=== PATIENT | female | born 1980 | race Caucasian/White ===

== ENCOUNTER → 2017-06-18 09:18 | Outpatient (CLI) | payer OTHER, SELFPAY ==
--- NOTE | 2017-06-18 | CYST_PTH ---
PATIENT: LESA ANGEL LOC: [facility] U#:[id number] AGE/SX: 44/F ROOM: RE06/18/[address]: Dr. Vitaly Maravilla MD : 1980 BED: DIS: SPEC #: [id number] RECD: 06/19/17 13:12 STATUS: MAURI DEMETRA #: [id number] GREGORY: 06/18/17 00:[address]: Vitaly Maravilla DEPT: SURGICAL PATHOLOGY RECD BY: Trent Saravia ENTERED: 06/19/17 13:12 SP TYPE: Cyst OTHR DR: Dr. Jewels Grady MD Tissues: CYST Procedures: Surgery Specimen Level III HEADER OPERATION: Ultrasound-guided left breast cyst removal PRE-OP DIAGNOSIS: Abnormal mammogram, palpable cyst TISSUE SUBMITTED: Left breast cyst MICROSCOPIC DIAGNOSIS Left breast cyst, excision: Epidermal inclusion cyst. AM:mihai 06/22/17 MICROSCOPIC DESCRIPTION Slides are reviewed. GROSS DESCRIPTION Received in fixative is one container labeled with the patient's name and designated left breast cyst. The specimen consists of a piece of fibroadipose tissue measuring 3.5 x 2 x 1 cm. A focal area shows a suture. This area is inked black and the rest of the specimen is inked blue. Sections reveal a cyst filled with vazquez-white cheesy material. The cyst measures 0.5 cm in greatest dimension. The entire specimen is submitted in three cassettes. / SJ:mihai 06/19/17 TC:5 CPT: 76969
== END ==
PROVIDERS: Family Provider Internal Medicine; PCP Internal Medicine; Visit Provider Surgery
DX: N60.02 Solitary cyst of left breast (principal)
CPT/HCPCS: 88304

== ENCOUNTER 2017-10-06 21:52 | Emergency (ER) | payer OTHER, SELFPAY ==
[2017-10-06 21:52] VITALS: BP 197/114; PULSE 100; RESP 16; TEMP 36.6; O2SAT 97; BMI 48.0
--- NOTE | 2017-10-06 22:48 | CT_ITS ---
STUDY: CT ABDOMEN AND PELVIS WITHOUT CONTRAST REASON FOR EXAM: Female, 36 years old. Left-sided flank pain for couple days with elevated white count. RADIATION DOSAGE (If Supplied By Facility): CTDIvol = ( 23.99 ) mGy, DLP = ( 1216.60 ) mGycm TECHNIQUE: Transaxial images were obtained from the dome of the diaphragm to the symphysis pubis without oral contrast, and without intravenous contrast. Sagittal and coronal images were reconstructed. Individualized dose optimization techniques were used for this CT. COMPARISON: None. FINDINGS: The visualized lung bases are unremarkable. The visualized portions of the heart are within normal limits. Normal liver. There are multiple gallstones. There is mild splenomegaly. Normal pancreas. Normal bilateral adrenal glands. The right kidney has a nonobstructing calculus measuring approximately 2.2 mm in size. There is mild prominence of the renal collecting systems without evidence for hydronephrosis, hydroureter or radiopaque ureteral calculus. There is a small hiatal hernia. There is no evidence for dilated bowel, ascites or pneumoperitoneum. The small bowel has a grossly normal appearance. The colon is nondistended for most of its length with apparent mild thickening of the monsalve. There are scattered colonic diverticula. Most of the stool is visible in the right colon. There are surgical clips in the region of the appendix consistent with a prior appendectomy. Normal abdominal aorta. Normal inferior vena cava. Normal retroperitoneum. Normal urinary bladder. There is absence of the uterus consistent with a prior hysterectomy. There is a small umbilical hernia containing fat. Normal osseous structures. CT/Abdomen/Pelvis without Cont IMPRESSION: 1. Cholelithiasis. 2. Nonobstructing right-sided renal calculus. Electronically Signed: Kamila Bobby MD at 0:19 EDT , Service support ,
[2017-10-06] MEDS: 0.9% Normal Saline 1,000 ML 1000 ML IV (22:58)
[2017-10-06] MEDS: Ketorolac 30 MG/ML Syringe IV (22:58)
[2017-10-06] MEDS: Ondansetron 4 MG/2 ML Vial IV (22:58)
[2017-10-06 22:59] LABS: Absolute Lymphocyte Count 2.38 X10^3/ul (0.83-4.51); Absolute Neutrophil Count 8.3 X10^3/uL (2.0-7.7); Basophil# 0.02 X10^3/uL; Basophil% 0.2 % (0-1); Eosinophil# 0.09 X10^3/uL; Eosinophils% 0.8 % (0-5); Hematocrit 41.6 % (37-47); Hemoglobin 13.5 g/dl (12.0-15.0); Lymphocyte # 2.38 X10^3/ul (4.0); Lymphocyte % 21.2 % (19-41); Mean Corp Hgb Conc 32.5 g/gl (32-36); Mean Corpuscular Hgb 26.5 pg (27.0-32.0); Mean Corpuscular Volume 81.7 fL (81-99); Mean Platelet Vol. 9.6 fl (6.2-12.0); Monocyte# 0.45 X10^3/uL; Neutrophil # 8.28 X10^3/uL (2.7-7.7); Neutrophil % 73.7 % (47-70); POSITIVE COUNT NO; POSITIVE DIFFERENTIAL NO; POSITIVE MORPHOLOGY NO; Platelet Count 234 K/mm3 (150-450); RBC Distribution Width SD 41.7 fl (35.1-43.9); Red Blood Count 5.09 M/mm3 (4.2-5.4); White Blood Count 11.2 K/mm3 (4.4-11.0)
[2017-10-06 23:00] LABS: Mucous, Urine 0 SEEN /hpf (<or=2+)
[2017-10-06 23:03] LABS: Color, Urine Yellow (Yellow); Glucose, Dipstick Normal (Normal); Ketone-Dipstick Negative (Negative); Leukocyte Esterase-Dipstick 500 /ul (Negative); Nitrite-Dipstick Positive (Negative); Occult Blood-Urine 250 /ul (Negative); Protein-Dipstick 100 mg/dl (Negative); Specific Gravity, Urine 1.025 (1.002-1.030); Urine Bilirubin Dipstick Negative (Negative); Urine Clarity Cloudy (Clear); Urine Urobilinogen Normal (Normal)
[2017-10-06 23:08] LABS: ALB/GLOB Ratio 1.1 RATIO (0.9-2.4); AST(SGOT) 16 U/L (15-37); Alanine Aminotransfer ALT/SGPT 29 U/L (13-56); Albumin, Serum 4.4 g/dL (3.2-5.0); Alkaline Phosphatase 95 U/L (45-117); Anion Gap 7 (5-15); BUN 15 mg/dL (7-18); BUN/Creat Ratio 16.5 RATIO (10-20); Calcium,Total 10.2 mg/dL (8.5-10.1); Chloride 107 mmol/L (98-107); Creatinine, Serum 0.91 mg/dL (0.55-1.02); EST Glomerular Filtration Rate 73 mL/min (>60); Est Glom Filt Rate - Afr Amer 89 mL/min (>60); Estimated Creatinine Clearance 72.38 ml/min; Globulin 3.9 g/dL (2.2-4.2); Glucose 103 mg/dL (74-106); Potassium 3.6 mmol/L (3.5-5.1); Protein, Total 8.3 g/dL (6.4-8.2); Sodium Level 141 mmol/L (136-145)
[2017-10-06 23:15] LABS: White Blood Cells >100 SEEN /hpf (0-5)
[2017-10-06 23:16] LABS: Bacteria 1+ /hpf (None Seen); Red Blood Cells-Urine 0-5 SEEN /hpf (0-5); Squamous Epithelial Cells - UA 0-5 SEEN /hpf (5-10)
[2017-10-06 23:34] LABS: Internal QC Validated? YES +Cl - CLEAR BKGD; Pregnancy, Urine Negative Negative
[2017-10-07] VITALS: BP 159/88; PULSE 87; RESP 16; O2SAT 97
--- NOTE | 2017-10-07 00:05 | ED.VISSUMM ---
- ER Visit Summary Date of Service: 10/07/17 Chief Complaint: [Left flank pain] History of Present Illness: The patient is a 36 F [the presents with left flank pain that waxes and wanes over the last 2 days. She describes intermittent nausea and diarrhea as well. She has had some urinary frequency but denies any dysuria or hematuria. No history of kidney stones. She has had prior hysterectomy and appendectomy. She overall appears well and in no acute distress. She denies any vaginal bleeding or discharge. She has no other complaints.] Physical Examination: [General: The patient appears well and in no apparent distress. Patient is resting comfortably on cart. Skin: Warm, dry, no pallor noted. No rash. Head: Normocephalic, atraumatic Neck: Supple, nontender. ENT: Moist mucus membranes, pharynx within normal limits. Cardiovascular: Regular Rate and Rhythm, no gallups or rubs Respiratory: Patient is in no distress, no accessory muscle use, lungs are clear to auscultation, no wheezing, rales or rhonchi Musculoskeletal: normal ROM, no deformity, no tenderness, no swelling. 2+ radial and DP pulses symmetric. GI: No tenderness to palpation, no masses appreciated. No rebound, guarding, or rigidity noted. Mild left CVA tenderness. Neurological: A&O, normal strength and sensation. Psychiatric: Cooperative] Test Results: [CBC and BMP within normal limits other than white blood cell count of 11.2. Urinalysis positive for infection. HCG was negative.] Emergency Department Course and Treatment: [Patient was given IV fluids, Toradol, and Zofran with improvement of symptoms. CTA imaging of the flank showed no acute process. Patient will be treated for urinary tract infection with a course of Cipro and was given her first dose here. She will follow closely with her primary provider and return with any new or worsening symptoms. Abdominal exam on repeat evaluation remains benign. Repeat blood pressure was improved as patient's pain is improved. Patient understands and is agreeable with this plan of care. Patient was discharged home in stable and improved condition.] Treatment Plan: [see above] Disposition: [discharge home] Impression: [UTI, Acute Flank Pain] This note was generated with [employer] software. It may contain incorrect words, spelling, and punctuation that were not noted in review of the chart prior to signing ED Disposition - Plan for ED Patient: Disposition: Home or Assisted Living Chief Complaint: Flank Pain Instructions: ED Flank Pain Uncertain Cause, ED UTI Cystitis Female Prescriptions: Ciprofloxacin [Cipro] 500 mg PO BID 7 Days #13 tab Referrals: Jewels Grady MD [Primary Care Provider] -
[2017-10-07] MEDS: Ciprofloxacin 500 MG Tablet PO (00:34)
[2017-10-07 00:35] VITALS: BP 173/94; PULSE 87; RESP 16; O2SAT 98
== END 2017-10-07 00:37 | disposition home or self-care (01) ==
PROVIDERS: Emergency Provider Emergency Medicine; Family Provider Internal Medicine; PCP Internal Medicine
DX: N39.0 Urinary tract infection, site not specified (principal); R19.7 Diarrhea, unspecified; E66.9 Obesity, unspecified; Z87.891 Personal history of nicotine dependence; Z90.710 Acquired absence of both cervix and uterus
CPT/HCPCS: 74176; 80053; 81001; 81025; 85025; 96361; 96374; 96375; 99285; J7030; J2405